=== PATIENT | female | born 1960 | race Caucasian/White ===

== ENCOUNTER 2017-01-06 12:41 | Emergency (ER) | payer OTHER ==
--- NOTE | 2017-01-06 13:53 | EDPHY ---
H & P Time Seen by Provider: 01/06/17 13:17 HPI/ROS: CHIEF COMPLAINT: Hand injury HISTORY OF PRESENT ILLNESS: 56-year-old female tripped yesterday and landed on outstretched hand. She reports an abrasion on the base of her left hand and pain along the lateral ulnar wrist. No obvious deformities. No other injuries. No pain in her elbow. Otherwise well. REVIEW OF SYSTEMS: Aside from elements discussed in the HPI, a comprehensive 10-point review of systems was reviewed and is negative. PAST MEDICAL HISTORY: Prior fracture of the base of the 5th metacarpal. Hypertension. SOCIAL HISTORY: Nonsmoker. Here with her daughter. GENERAL APPEARANCE: Pleasant, conversant, no acute distress. FOCUSED EXAM OF left hand: Abrasion on the palmar aspect at the base of the palm. No open fracture. No deformity. Minimal tenderness to palpation at the base of the 5th metacarpal. Patient reports some discomfort with ulnar flexion of the wrist. Normal pulses. Brisk capillary refill. Normal ulnar sensation. Smoking Status: Never smoked Constitutional: Initial Vital Signs Temperature (C) 36.7 C 01/06/17 12:45 Heart Rate 86 01/06/17 12:45 Respiratory Rate 16 01/06/17 12:45 Blood Pressure 108/75 01/06/17 12:45 O2 Sat (%) 93 01/06/17 12:45 O2 Delivery Mode Room Air Allergies/Adverse Reactions: No Known Allergies Allergy (Verified 01/06/17 13:03) Home Medications: Medication Instructions Recorded Levothyroxine 03/02/11 Lisinopril 03/02/11 Medrol Dose Walter 01/06/17 MDM/Departure - [facility] Imaging Results: Imaging Impressions Wrist X-Ray 01/06/17 13:02 Impression: No acute osseous findings. Imaging: I viewed and interpreted images myself ED Course/Re-evaluation: X-ray demonstrates changes related to prior fracture at the base of the 5th metacarpal. No acute fractures identified. Patient was placed in a Velcro wrist splint. She was advised to use ice and immobilization. She states she is on a steroid for sinusitis and so would prefer not to use nonsteroidal anti- inflammatories. This is fine. She was advised to use Tylenol if needed. She will follow up with Dr. Carolina who did her prior surger if she is not improving as expected in the next several days. Differential Diagnosis: Differential diagnosis for the patient's injury was considered including but not limited to contusion, abrasion, laceration, fracture, open fracture, or dislocation. - Depart Disposition: Home, Routine, Self-Care Clinical Impression: Wrist sprain Condition: Good Instructions: Wrist Sprain (ED) Additional Instructions: Mainstay of therapy is rest, ice, immobilization, elevation, and Tylenol for pain. Apply ice for 20-30 minutes every 2-3 hours for the next 48 hours. Because you are taking a steroid, I would try to avoid nonsteroidals. If needed an occasional dose of 400 mg of ibuprofen would be safe. Followup with Dr. Carolina next week for further re-evaluation. Referrals: Agnieszka Ochoa MD [Primary Care Provider] - As per Instructions Maikel Carolina MD [Medical Doctor] - As per Instructions
[2017-01-06 14:03] VITALS: BP 110/67; PULSE 81; RESP 18; TEMP 97.7; O2SAT 95
== END 2017-01-06 14:02 | disposition home or self-care (01) ==
LOC: CED 12:41
DX: S63.502A Unspecified sprain of left wrist, initial encounter (principal); I10 Essential (primary) hypertension; W01.0XXA Fall on same level from slipping, tripping and stumbling without subsequent striking against object, initial encounter
CPT/HCPCS: 73110-PO; L3908